=== PATIENT | female | born 1975 | race Caucasian/White ===

== ENCOUNTER → 2021-01-15 | Outpatient (CLI) | payer OTHER | LOC: RAD 13:06 | DX: N20.0 Calculus of kidney (principal); N28.89 Other specified disorders of kidney and ureter | CPT/HCPCS: 74018 ==

== ENCOUNTER → 2021-05-07 | Outpatient (CLI) | payer OTHER | LOC: MAMO 08:30 | DX: Z12.31 Encounter for screening mammogram for malignant neoplasm of breast (principal) | CPT/HCPCS: 77063; 77067 ==

== ENCOUNTER 2022-06-17 22:09 | Emergency (ER) | payer OTHER ==
[2022-06-17] MEDS ORDERED: XYLOCAINE VISC100 ML PO (23:02)
== END 2022-06-17 23:00 | disposition home or self-care (01) ==
LOC: ER1 22:09
DX: S01.511A Laceration without foreign body of lip, initial encounter (principal); Y04.1XXA Assault by human bite, initial encounter
CPT/HCPCS: 99282